=== PATIENT | male | born 1960 | race American Indian/Alaskan Native ===

== ENCOUNTER 2017-02-28 10:54 | Outpatient (CLI) | payer MEDICAID ==
--- NOTE | 2017-03-02 07:03 | Vascular Lab Report ---
Right Lower Extremity Venous Duplex Study: Reason for Exam: History of DVT. Comments on the Right: Partially occlusive deep venous thrombosis is noted in the popliteal and femoral veins. Unchanged from the previous study.. The remaining veins visualized are freely compressible without evidence of internal echogenicity. Spontaneous and phasic flow is present proximally. Comments on the Left: A limited duplex study was done of the proximal veins of the left lower extremity. All veins visualized are freely compressible without evidence of internal echogenicity. Flow is spontaneous and phasic throughout. No evidence of acute or chronic thrombus is seen in any of the vessels visualized. Impression: Chronic deep venous thrombosis in the right lower extremity.
== END 2017-02-28 10:55 | disposition home or self-care (01) ==
LOC: VAS 10:54
PROVIDERS: ATTEND Specialist
DX: I82.531 Chronic embolism and thrombosis of right popliteal vein (principal); I82.511 Chronic embolism and thrombosis of right femoral vein

== ENCOUNTER 2017-06-13 13:08 | Outpatient (CLI) | payer MEDICAID ==
--- NOTE | 2017-06-13 14:03 | XRay Report ---
LUMBOSACRAL SPINE, 3 VIEWS: History: Back pain Findings: The vertebral bodies, disk spaces and posterior elements are intact. No compression deformity or malalignment. Advanced disc space narrowing and mild facet arthropathy is identified at L4-5 and L5-S1. The SI joints are symmetric and unremarkable. Impression: Lumbar spondylosis. No acute process.
--- NOTE | 2017-06-14 08:20 | Mammography Report ---
BONE DEXA:06/13/17 13:08:00 CLINICAL: 57-year-old male.Back pain. TECHNIQUE: Two site bone DEXA performed on an Hologic scanner. FINDINGS: The average BMD of the lumbar spine L1-L3 is 1.314g/cm squared with a T-score of +2.2 and a Z-score of +1.9. The L4 vertebral body was excluded as an outlier because of endplate sclerosis at L4-5. The average BMD of the left hip is 1.106g/cm squared with a T-score of +0.5 and a Z-score of + 0.4. IMPRESSION: 1. WHO classification: Normal with average fracture risk based on both spine and left hip measurements. 2. L4-5 degenerative change with extensive endplate sclerosis. RECOMMENDATION: Clinical correlation and routine screening. DEFINITIONS: BMD = Bone Mineral Density T-score = BMD related to mean peak bone mass of young adult (mean expressed in Standard Deviation) Z-score = Age matched BMD expressed in SD World Health Organization (WHO) Diagnostic Criteria Normal T-score > -1 SD Osteopenia T-score between -1 and -2.4 SD Osteoporosis T-score -2.5 SD or below NOTE: BMD is not the only risk factor for fracture. One should also consider factors such as the patient's age, risk of falling, previous osteoporotic fracture, family history of osteoporotic fractures, current smoker, and low body weight. Z-scores are not calculated if >80 years of age.
== END 2017-06-13 13:09 | disposition home or self-care (01) ==
LOC: MAMMO 13:08
PROVIDERS: ATTEND Specialist
DX: M47.896 Other spondylosis, lumbar region (principal); M12.88 Other specific arthropathies, not elsewhere classified, other specified site; M25.50 Pain in unspecified joint; I10 Essential (primary) hypertension; J45.909 Unspecified asthma, uncomplicated
CPT/HCPCS: 72100; 77080

== ENCOUNTER 2017-09-25 12:38 | Outpatient (CLI) | payer MEDICAID ==
--- NOTE | 2017-09-26 13:30 | Vascular Lab Report ---
Right Lower Extremity Venous Duplex Study: Reason for Exam: Pulmonary embolism. Comments on the Right: Nonocclusive thrombus is noted in the posterior tibial and peroneal vein extending into the popliteal and distal femoral veins.. The remaining veins visualized are freely compressible without evidence of internal echogenicity. Spontaneous and phasic flow is present proximally. Comments on the Left: A limited duplex study was done of the proximal veins of the left lower extremity. All veins visualized are freely compressible without evidence of internal echogenicity. Flow is spontaneous and phasic throughout. No evidence of acute or chronic thrombus is seen in any of the vessels visualized. Impression: Chronic deep venous thrombosis in the right lower extremity.
== END 2017-09-25 12:39 | disposition home or self-care (01) ==
LOC: VAS 12:38
PROVIDERS: ATTEND Specialist
DX: I82.501 Chronic embolism and thrombosis of unspecified deep veins of right lower extremity (principal)

== ENCOUNTER 2020-08-19 12:47 | Outpatient (CLI) | payer MEDICAID ==
--- NOTE | 2020-08-19 15:25 | Vascular Lab Report ---
DUPLEX DOPPLER LOWER EXTREMITY VEINS, RIGHT INDICATION: DVT. Lower extremity pain and swelling TECHNIQUE: Duplex doppler imaging was performed through the veins of the right lower extremity using venous comp ression and other maneuvers. COMPARISON: None available. FINDINGS: Common Femoral vein: Negative. Superficial Femoral vein: Negative. Popliteal vein: Chronic DVT with recanalization. Calf veins: Negative. Additional findings: None. IMPRESSION: Chronic appearing recanalized deep vein thrombosis within the right popliteal vein. No acute DVT is a ppreciated. Signer Name: Xavi Taveras MD Signed: 08/19/2020 3:21 PM Workstation Name: [id number]
== END 2020-08-19 12:48 | disposition home or self-care (01) ==
LOC: VAS 12:47
PROVIDERS: ATTEND Specialist
DX: I82.501 Chronic embolism and thrombosis of unspecified deep veins of right lower extremity (principal)